=== PATIENT | female | born 1965 | race Two or more races ===

== ENCOUNTER 2023-05-04 10:00 | Inpatient (IN) | payer OTHER ==
[~2023-05-04] VITALS: Ht 162.6 cm; Wt 70.3 kg
[2023-05-04] MEDS ORDERED: WELLBUTRIN XL150 M1 PO (13:25)
[2023-05-04] MEDS ORDERED: SYNTHROID100 MCG PO (13:25)
[2023-05-04] MEDS ORDERED: AMITIZA8 MCG PO (13:26)
[2023-05-04] MEDS ORDERED: PROZAC20 MG PO (13:26)
[2023-05-04] MEDS ORDERED: LIPITOR20 MG PO (13:26)
[2023-05-04] MEDS ORDERED: PREVENT SOFTGE1 EACH PO (13:27)
[2023-05-04] MEDS ORDERED: MAGNESIUM400 MG PO (13:27)
[2023-05-04] MEDS ORDERED: PROBIOTIC250 MG PO (13:27)
[2023-05-04] MEDS ORDERED: HORIZANT300 MG PO (13:28)
[2023-05-04] MEDS ORDERED: PROTONIX40 MG PO (13:28)
[2023-05-04] MEDS ORDERED: NAPROXEN500 MG PO (13:28)
[2023-05-04] MEDS ORDERED: DICY20TA PO (13:28)
[2023-05-11] MEDS ORDERED: GABAPENTIN300 M2 (13:17)
[2023-05-11] MEDS ORDERED: VITAMIN D31250 MCG (13:17)
[2023-05-11] MEDS ORDERED: SYNTHROID112 MCG (13:17)
[2023-05-11] MEDS ORDERED: MAGNESIUM400 M1 (13:18)
[2023-05-11] MEDS ORDERED: BUPIVACAINE HCL/PF 0.5% 30ML ML ONE ×2 (14:38→15:37)
[2023-05-11] MEDS ORDERED: LIDOCAINE HCL 1%/Epi 20ML VIAL IJ ONE ×2 (14:40→16:45)
[2023-05-11] MEDS ORDERED: CEFTRIAXONE SODIUM 2,000 MG VIAL IV ONE (16:45)
[2023-05-11] MEDS ORDERED: BUPIVACAINE HCL/PF 0.25% 30ML VIAL InF ONE (16:45)
[2023-05-11] MEDS ORDERED: METRONIDAZOLE/SODIUM CHLORIDE 500 MG/100 ML PIGGYBACK IV ONE (16:45)
[2023-05-11] MEDS ORDERED: SUGAMMADEX SODIUM 200 MG/2 ML VIAL IV ONE ×2 (17:40→18:15)
[2023-05-11] MEDS ORDERED: MORPHINE SULFATE 4 MG/ML CARTRIDGE IV PRN (18:45)
[2023-05-11] MEDS ORDERED: RINGERS SOLUTION,LACTATED 1,000 ML IV SCH (18:45)
[2023-05-11] MEDS ORDERED: ONDANSETRON HCL 2 MG/ML VIAL IV PRN (18:45)
[2023-05-11] MEDS ORDERED: OxyCODONE HCL 5 MG TABLET (ROXICODONE) PO PRN (18:45)
[2023-05-11] MEDS ORDERED: ACETAMINOPHEN 500 MG GEL..CAP PO SCH (20:00)
[2023-05-11 20:03] LABS: HEMATOCRIT 38.9 % (36.0-45.00); HEMOGLOBIN 13.3 g/dL (12.0-15.00); MEAN CELL VOLUME 87.5 fL (80.00-100.00); MEAN CORPUSCULAR HGB CONC 34.3 g/dl (32.0-36.0); PLATELET COUNT 308 K/uL (150-450); RED BLOOD COUNT 4.45 M/uL (4.00-6.00); RED CELL DISTRIBUTION WIDTH 13.8 % (11.5-14.5)
[2023-05-11] MEDS ORDERED: ALBUTEROL SULFATE 3 ML/2.5 MG AMPUL.NEB IH SCH (20:40)
[2023-05-11] MEDS ORDERED: SIMETHICONE 125 MG CAPSULE PO SCH (21:00)
[2023-05-11] MEDS ORDERED: FAMOTIDINE/PF 20 MG/2 ML VIAL IV PUSH SCH (21:00)
[2023-05-11] MEDS ORDERED: FAMOTIDINE/PF 20 MG/2 ML VIAL ONE (21:18)
[2023-05-11 21:26] LABS: ABG PH 7.343 (7.35-7.45); ABG pCO2 46.4 mmHg (35-45); BASE EXCESS -1.4 mmol/l; BICARBONATE 24.7 mmol/l (23-25); SaO2 99.3 %; Tco2 26.1 mmol/l; allen test SATISFACTORY; puncture site RADIAL LEFT
[2023-05-11 21:27] LABS: o2 36 %
[2023-05-12] MEDS ORDERED: METOCLOPRAMIDE HCL 5 MG/ML VIAL ONE (00:44)
[2023-05-12] MEDS ORDERED: GABAPENTIN 300 MG CAPSULE PO ONE (00:45)
[2023-05-12] MEDS ORDERED: GABAPENTIN 300 MG CAPSULE PO SCH (01:00)
[2023-05-12] MEDS ORDERED: METOCLOPRAMIDE HCL 5 MG/ML VIAL IV SCH (01:00)
[2023-05-12] MEDS ORDERED: CELECOXIB 200 MG CAPSULE PO SCH (05:00)
[2023-05-12] MEDS ORDERED: LEVOTHYROXINE SODIUM 100 MCG TABLET PO ONE (05:20)
[2023-05-12] MEDS ORDERED: LEVOTHYROXINE SODIUM 112 MCG TABLET PO SCH (06:00)
[2023-05-12] MEDS ORDERED: LEVOTHYROXINE SODIUM 100 MCG TABLET PO SCH (06:00)
[2023-05-12] MEDS ORDERED: SYNTHROID 100 MCG PO SCH (06:00)
[2023-05-12] MEDS ORDERED: SYNTHROID 112 MCG PO SCH (06:00)
[2023-05-12 06:54] LABS: HEMATOCRIT 36.8 % (36.0-45.00); HEMOGLOBIN 12.8 g/dL (12.0-15.00); MEAN CELL VOLUME 85.3 fL (80.00-100.00); MEAN CORPUSCULAR HEMOGLOBIN 29.7 pg (27.00-32.0); MEAN CORPUSCULAR HGB CONC 34.8 g/dl (32.0-36.0); PLATELET COUNT 269 K/uL (150-450); RED BLOOD COUNT 4.32 M/uL (4.00-6.00); RED CELL DISTRIBUTION WIDTH 13.9 % (11.5-14.5)
[2023-05-12 07:22] LABS: ALBUMIN 2.8 gm/dL (3.4-5.0); CALCIUM 8.2 mg/dL (8.5-10.1); CREATININE SERUM 0.54 mg/dL (0.55-1.02); GFR 115.95; MAGNESIUM 1.7 mg/dL (1.8-2.4); PHOSPHOROUS 3.5 mg/dL (2.5-4.9); POTASSIUM 3.89 mEq/L (3.5-5.1)
[2023-05-12] MEDS ORDERED: MAGNESIUM SULFATE IN WATER 50 ML IV ONE (07:45)
[2023-05-12] MEDS ORDERED: FLUOXETINE HCL 20 MG CAPSULE PO SCH (09:00)
[2023-05-12] MEDS ORDERED: HYOSCYAMINE SULFATE 0.125 MG TAB.SUBL SL SCH (09:00)
[2023-05-12] MEDS ORDERED: LACTULOSE 20 G/30 ML BLIST.PACK PO SCH (09:00)
[2023-05-12] MEDS ORDERED: LACTOBACILLUS ACIDOPHILUS 1 CAP CAP PO SCH (09:00)
[2023-05-12] MEDS ORDERED: BUPROPION HCL 150 MG TABLET.SA PO SCH (09:00)
[2023-05-12] MEDS ORDERED: ATORVASTATIN CALCIUM 10 MG TABLET PO SCH (17:00)
[2023-05-12] MEDS ORDERED: ENOXAPARIN SODIUM 40 MG/0.4 ML SYRINGE SUBCUTANEO SCH (17:00)
[2023-05-12] MEDS ORDERED: POLYETHYLENE GLYCOL 3350 17 GM BLIST.PACK PO SCH (17:00)
[2023-05-13] MEDS ORDERED: PATIENTS OWN MEDICATION (MEDICAMENTO EN PISO) PO SCH (06:00)
[2023-05-13] MEDS ORDERED: ENOXAPARIN SODIUM 40 MG/0.4 ML SYRINGE SUBCUTANEO SCH (09:00)
[2023-05-14] MEDS ORDERED: PATIENTS OWN MEDICATION (MEDICAMENTO EN PISO) PO SCH (06:00)
== END 2023-05-13 11:25 | disposition home or self-care (01) | DRG 330 ==
LOC: O/R 05-11 09:43 → SURH 05-11 10:00 → O/R 05-11 16:14 → SURG 05-11 19:35
PROVIDERS: Internal Medicine Geriatric Medicine; ADMIT Colon & Rectal Surgery; ATTEND Colon & Rectal Surgery
PROC: 0DJD8ZZ Inspection of Lower Intestinal Tract, Via Natural or Artificial Opening Endoscopic (ICD-10-PCS; 2023-05-11)
PROC: 0DBP4ZZ Excision of Rectum, Percutaneous Endoscopic Approach (ICD-10-PCS; 2023-05-11)
PROC: 0DTN4ZZ Resection of Sigmoid Colon, Percutaneous Endoscopic Approach (ICD-10-PCS; principal; 2023-05-11 15:15)
DX: K57.32 Diverticulitis of large intestine without perforation or abscess without bleeding (principal); K92.1 Melena